=== PATIENT | female | born 1950 | race Caucasian/White ===

== ENCOUNTER 2024-08-17 08:45 | Outpatient (RCR) | payer MEDICARE, BC, SELFPAY | END 2024-12-15 23:59 | disposition home or self-care (01) | PROVIDERS: PCP Physician Assistant Medical; Visit Provider Student in an Organized Health Care Education/Training Program | DX: M79.604 Pain in right leg (principal); Z74.09 Other reduced mobility; M62.81 Muscle weakness (generalized); R26.81 Unsteadiness on feet; Z51.89 Encounter for other specified aftercare | CPT/HCPCS: 97110; 97140; 97161 ==

== ENCOUNTER 2025-01-17 14:36 | Inpatient (IN) | payer MEDICARE, BC, SELFPAY ==
[2025-01-16] VITALS (23 sets, daily range): BP systolic 82–185; BP diastolic 38–113; PULSE 59–109; RESP 12–18; TEMP 35.8–36.9; O2SAT 91–97; BMI 28.0
[2025-01-16] MEDS: OXYCODONE (CR) 10 MG TAB.ER.12H PO (08:48)
[2025-01-16] MEDS: LACTATED RINGERS 1000 ML 1,000 ML 100 ML IV ×2 (08:48→13:23)
[2025-01-16] MEDS: ACETAMINOPHEN 500 MG TABLET 1000 MG PO ×3 (08:48→23:47)
[2025-01-16] MEDS: SODIUM CHLORIDE 0.9 % (FLUSH) 10 ML SYRINGE IVF (08:48)
--- NOTE | 2025-01-16 10:16 | W.PM.H&PU ---
History & Physical Update History & Physical Update H&P Reviewed and patient assessed: No changes noted
--- NOTE | 2025-01-16 10:45 | XR_ITS ---
Patient: BETTY MARTE Facility:?[facility] Patient ID:?[id number] Site Patient ID:?[id number]. Site :?[id number] Study:?XRay-Hip Right 1v-01/16/2025 2:17:59 PM Ordering Physician:Victorino Patel Final Report: Indication: Right total hip arthroplasty Technique: AP lower pelvis and lateral right hip Findings: There is a right MATTHEW. Components appear well seated. No fracture or dislocation. Dictated by Hunter Cutler MD @ 01/18/2025 10:25:11 AM (Electronic Signature)
[2025-01-16] MEDS: fentaNYL 100 MCG/2 ML inj IVP (11:16)
[2025-01-16] MEDS: MIDAZOLAM HCL 1 MG/ML inj IVP (11:16)
--- NOTE | 2025-01-16 11:23 | SUR.PREOP ---
TIME?OUT:?1116 PT/RN/MDA?VERIFICATION?OF?SURGICAL?SITE,?PROCEDURE,?AND?CONSENT OBTAINED?PRIOR?TO?INVASIVE?PROCEDURE.
--- NOTE | 2025-01-16 12:11 | CRLHL7_ITS ---
For Patients: As a result of the Cures Act, medical imaging exams and procedure reports are released immediately into your electronic medical record. You may view this report before your referring provider. If you have questions, please contact your health care provider. Indication: Right hip arthroplasty. Technique: Orthopedic pelvis and cross-table lateral view of the right hip. Comparison: None. Findings: A non cemented right total hip arthroplasty has been placed. Alignment appears anatomic. There are postoperative changes within the right hip soft tissues. No other retained radiopaque metallic surgical foreign body is identified. The left hip joint space is preserved. Impression: Status post right hip arthroplasty. Dictated by Alan Graham MD @ 01/17/2025 2:22:40 PM (Electronically Signed)
[2025-01-16] MEDS: CEFAZOLIN 2 GM in 0.9 % SODIUM CHLORIDE Mini-bag 100 ML IVPB ×2 (12:12→17:40)
[2025-01-16] MEDS: TRANEXAMIC ACID 100 MG/ML INJ 1000 MG IV (12:12)
--- NOTE | 2025-01-16 12:40 | P.ANES_ITS ---
Anesthesia Charges Start Date/Time Anesthesia Start Date: 01/16/25 Anesthesia Start Time: 11:46 Stop Date/Time Anesthesia Stop Date: 01/16/25 Anesthesia Stop Time: 14:06 Summary Extremes of Age - Over 70 or under 1: MDA Coding CPT Codes CPT Codes: ANESTH HIP ARTHROPLASTY - 14367 ([id number]) P1 - NORMAL HEALTHY PATIENT, QK - MINE MOTOR OPERATOR 2-4 CNCRNT ANES PROC, QX - IT PROGRAM ENGAGEMENT DIRECTOR SVC W/ MD MED DIRECTION Additional Codes: Summary - Extremes of Age - Over 70 or under 1: MDA ([id number])
--- NOTE | 2025-01-16 12:40 | W.PM.NB ---
Nerve Block Nerve Block Time Seen by Provider: 11:20 Date Seen: 01/16/25 Type of block requested by surgeon for post-operative analgesia: CHRISTI/LFCN Side: right Time out performed: Yes Verification of patient name: Yes Verification of date of : Yes Site marking: site marked Name of person performing procedure: Francois Continuous monitoring Was continuous monitoring of O2 sat, B/P, sports management internship, recorded every 15 minutes?: Yes Procedure Checklist: sterile prep, needles and gloves Ultrasound guided. Images saved: Yes Medications given in 5ml increments after negative aspiration: Ropivicaine %: 0.5 mL: 30 Needle gauge: 20 Precedex (mcg): 25 Patient tolerated procedure well: Yes Additional comments: Needle noted below psoas tendon needle noted adjacent to LFCN Block Charges Block Charge (with Pro Fee): Other Periph Nerve Block Use of Ultrasound Machine for Block: Yes- US Guidance/pain block
--- NOTE | 2025-01-16 12:40 | W.ANESCHARGE ---
Anesthesia Charges Start Date/Time Anesthesia Start Date: 01/16/25 Anesthesia Start Time: 11:46 Stop Date/Time Anesthesia Stop Date: 01/16/25 Anesthesia Stop Time: 14:06 Summary Extremes of Age - Over 70 or under 1: MDA Coding CPT Codes CPT Codes: ANESTH HIP ARTHROPLASTY - 22974 ([id number]) P1 - NORMAL HEALTHY PATIENT, QK - ADMINISTRATIVE ASST 2-4 CNCRNT ANES PROC, QX - SECOND TIME WORKER SVC W/ MD MED DIRECTION Additional Codes: Summary - Extremes of Age - Over 70 or under 1: MDA ([id number])
[2025-01-16] MEDS: LACTATED RINGERS 1000 ML 1,000 ML 500 ML IV (13:23)
--- NOTE | 2025-01-16 13:32 | P.ORPRC_ITS ---
Procedure Note Date of procedure: 01/16/25 Procedure: PREOPERATIVE DIAGNOSIS: 1. Right hip osteoarthritis, severe, primary POSTOPERATIVE DIAGNOSIS: 1. Right hip osteoarthritis, severe, primary PROCEDURE: 1. Right total hip arthroplasty-anterior approach 2. 63282 - intraoperative fluoroscopy up to 1 hour. SURGEON: Jorge Heller MD. SKULL CHOPPER: Miller Thapa PA-C; DIANE Camar[place] - Of note, a skilled physical therapist assistant was critical for this case to aid in patient positioning, tissue retraction, limb manipulation/positioning, and closure. ANESTHESIA: Spinal anesthetic EBL: 250 mL IMPLANTS: DePuy J[employer]J uncemented total hip [employer] cup size 50, hole eliminator, +4 neutral liner Actis stem, standard offset, size 6 +5 mm ceramic 32mm head COMPLICATIONS: None evident INDICATIONS: The patient is a pleasant 74-year-old female who has experienced severe right hip pain and difficulty bearing weight. Workup included x-rays which revealed severe osteoarthrosis in the hip. Given the deformity, the dysfunction, and the pain, as well as the failure of nonoperative management, recommendation was made for surgery. FINDINGS: Full-thickness chondral loss diffusely throughout the femoral head. Also acetabulum. Osteophytes around the perimeter of the acetabulum and femoral head/neck junction. Moderate effusion upon entering the joint. DESCRIPTION OF PROCEDURE: Following a thorough discussion of risks, benefits, and alternatives consent was obtained and the right hip was marked. The patient was brought to the operating room and placed supine on the operating table. Induction of anesthesia was undertaken. 2 g IV Ancef and 1 g tranexamic acid was administered within 1 hr of incision preoperatively. Proper time-out was performed identifying proper patient, site, procedure. The operative extremity was prepped and draped in the appropriate sterile fashion using ChloraPrep after the patient was positioned on the Carson table with head in neutral alignment and all bony prominences well padded. C-arm fluoroscopic imaging was utilized to confirm proper pelvis rotation and position, and to get true AP films of both the contralateral left, and the affected right hip. This is for comparison. A longitudinal incision was made starting approximately 1 cm distal to the ASIS, and 3-4 cm lateral. The incision was extended distally aiming toward the lateral border the patella. Sharp incision through skin and bovie cautery through the subcutaneous tissue allowed identification of the TFL fascia. This was sharply divided, and the fascia bluntly released from the muscle fibers as we dissected medial. Upon coming to the medial border, we were able to retract the TFL laterally, and penetrated the deeper fascia and identify the crossing circumflex vessels. These were ligated/cauterized. The rectus was elevated from the capsule, and retractors placed laterally and medially along the femoral neck to help with visualization of the capsule. We then performed an inverted T capsulotomy. The capsule was tagged for later repair. Retractors were placed inside the capsule. The femoral neck was visualized after releasing medially down to the lesser trochanter, along the saddle laterally, and up onto the acetabulum. The femoral neck cut was made in line with our preoperative templating. The head was removed in a single piece, and sized. We turned our attention to acetabular preparation. Initially, the labrum was resected from around the perimeter, the pulvinar was excised, allowing us to visualize the false wall. We started the reaming with a 43 mm reamer. This was medialized down to the true wall. We then enlarged our reamers sequentially up to one size less than the selected cup size. We trialed at the same size and found it to have an excellent fit. The selected cup was then opened, inserted, and impacted in line with the goal of 40? of abduction, and 20-25? of anteversion. This was confirmed on C-arm fluoroscopic imaging to be in the appropriate/goal position. Once the cup was placed we placed a hole eliminator and a liner consistent with preop planning. Attention was turned to the femoral preparation. The limb was extended, externally rotated, and adducted. The posteromedial capsule was released, as retractors were placed allowing excellent access to the proximal femur. Initially a box office attendant was followed by canal finder followed by various broaches. We broached sequentially up to the size noted above, found it to have excellent rotational control, and trialing various heads and necks, revealed that appropriate neck offset, and the above noted head size provided the greatest stability, and spiritism of length, and offset. C-arm fluoroscopic imaging confirmed position of the stem, as well as leg lengths, which were compared with the pre procedure all fluoroscopic images. Trial implants were removed, the real femoral stem inserted, as was the appropriate head. After reducing, the leg was placed through range of motion and stability was confirmed anterior, posterior, and lateral. A 3 min Betadine soak was then performed, and thorough irrigation with normal saline followed. Closure of the capsule was performed with #1 PDS. Bleeding was confirmed to be controlled at this stage, and the TFL fascia was closed with #0 strata fix. Subcutaneous, and subcuticular closure was performed with 2-0 Vicryl and 4-0 Monocryl, respectively. Dressings were applied, and the patient was awoken from anesthesia and transferred the PACU in stable condition. A skilled physical therapist assistant was critical for this case to aid in patient positioning, tissue retraction, acetabular and proximal femoral exposure, limb manipulation/positioning, dislocation/relocation, patient safety, and closure. PLAN: 1. Weight bear as tolerated operative extremity. 2. 23 hr perioperative antibiotics. 3. Ice. 4. PT/OT consults for ambulation assistance/mobility education. 5. Social work consult for discharge planning. 6. DVT prophylaxis with at SCDs and Xarelto x5 days followed by aspirin for a total of 1 month, if her allergy allows.
--- NOTE | 2025-01-16 14:07 | P.ANES_ITS ---
Anesthesia Charges Start Date/Time Anesthesia Start Date: 01/16/25 Anesthesia Start Time: 11:46 Stop Date/Time Anesthesia Stop Date: 01/16/25 Anesthesia Stop Time: 14:06 Summary Extremes of Age - Over 70 or under 1: QUALITY SYSTEMS TECHNICIAN Coding CPT Codes CPT Codes: ANESTH HIP ARTHROPLASTY - 05008 ([id number]) P1 - NORMAL HEALTHY PATIENT, QX - QUALITY SYSTEMS TECHNICIAN RAMO W/ MED DIRECTION, QK - CAMPUS INTERVIEWS INTERN 2-4 CNCRNT ANES PROC Additional Codes: Summary - Extremes of Age - Over 70 or under 1: QUALITY SYSTEMS TECHNICIAN ([id number])
--- NOTE | 2025-01-16 14:07 | W.ANESCHARGE ---
Anesthesia Charges Start Date/Time Anesthesia Start Date: 01/16/25 Anesthesia Start Time: 11:46 Stop Date/Time Anesthesia Stop Date: 01/16/25 Anesthesia Stop Time: 14:06 Summary Extremes of Age - Over 70 or under 1: PSYCHOMETRIC EXAMINER Coding CPT Codes CPT Codes: ANESTH HIP ARTHROPLASTY - 23692 ([id number]) P1 - NORMAL HEALTHY PATIENT, QX - PSYCHOMETRIC EXAMINER RAMO W/ MED DIRECTION, QK - TANK ERECTOR 2-4 CNCRNT ANES PROC Additional Codes: Summary - Extremes of Age - Over 70 or under 1: PSYCHOMETRIC EXAMINER ([id number])
[2025-01-16] MEDS: PHENYLEPHRINE 100 MCG/ML SYRINGE IVP (14:11)
[2025-01-16] MEDS: HYDROmorphone 0.5 mg/0.5 ml inj IVP ×2 (15:06→23:05)
[2025-01-16] MEDS: LACTATED RINGERS 1000 ML 1,000 ML 75 ML IV (16:38)
[2025-01-16] MEDS: OXYCODONE 5 MG TABLET PO ×3 (17:39→21:36)
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
[2025-01-16] MEDS: SENNOSIDES 1 TAB TABLET 2 TAB PO (20:24)
--- NOTE | 2025-01-16 22:02 | P.IMCN_ITS ---
Date of Consult Consult date: 01/16/25 Primary Care Provider: Velia Singleton DO Consult Narrative Narrative: Lilliana Fabian is a 74 year old female admitted to the hospital for right total hip arthroplasty. Procedure performed today by Dr. Heller today. No complications. Dr. Heller requested consultation for medical management. Postoperatively she is doing well. She has no postoperative concerns. Pain is well controlled. She reports that preoperatively she was doing well. No significant concerns for perioperative care on her preop exam. 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) ?H46.8 - Other optic neuritis (ICD-10) Breast cancer ?C50.919 - Malignant neoplasm of unspecified site of unspecified female breast (ICD-10) Surgical History (Updated 01/16/25 @ 22:18 by Rogelio Woodward MD) S/P total right hip arthroplasty ?Z96.641 - Presence of right artificial hip joint (ICD-10) History of left mastectomy (2012) ?Z90.12 - Acquired absence of left breast and nipple (ICD-10) Family History (Updated 01/16/25 @ 22:19 by Rogelio Woodward MD) Sister Breast cancer Mother Breast cancer Heart disease Father Diabetes Social History (Updated 01/16/25 @ 22:20 by Rogelio Woodward MD) Narrative: She lives with her , Landry, who is healthcare power of mergers and acquisitions attorney. Code status is DNR. She lives in a home in [place] and can live on 1 level during her recovery from surgery. She does not smoke. She drinks alcohol couple times a month Problems where you live: no known problems Smoking Status: Never smoker Do you use any of these nicotine containing products: None Second hand tobacco smoke exposure: No How often do you have a drink containing alcohol: never AUDIT-C Alcohol total score: 0 Non-prescribed substance use: denies use Caffeine: Yes service: No Meds Home Medications and Allergies Home Medications ?Medication ?Instructions ?Recorded ?Confirmed ?Type amitriptyline 10 mg tablet 10 mg PO QPM 11/10/24 01/16/25 History escitalopram oxalate 20 mg tablet 20 mg PO QAM 11/10/24 01/16/25 History losartan 100 mg tablet 100 mg PO DAILY 11/10/24 01/16/25 History Allergies Allergy/AdvReac Type Severity Reaction Status Date / Time aspirin Allergy Rash Verified 01/16/25 08:39 Exam Narrative: Exam Narrative: She is alert and appears in no distress. Oropharynx is normal. Respirations are clear to auscultation. Cardiovascular: S1, S2, regular rate and rhythm. Abdomen: Bowel sounds active. Abdomen is soft without tenderness or mass. Hip is examined there is some swelling without evidence of infection. Distally she has intact pulses and sensation. No significant edema in her feet and ankles. Const: Vital Signs, click to edit/add: Vital Signs - 24 hr 01/16/25 09:11 01/16/25 11:16 01/16/25 11:20 Temperature 98.3 F 98.3 F Pulse Rate 73 67 67 Respiratory Rate 16 16 16 Blood Pressure 165/89 H 169/90 H 163/88 H Pulse Oximetry 95 97 97 Oxygen Delivery Me thod Room Air Nasal Cannula Nasal Cannula Oxygen Flow Rate 2 2 01/16/25 14:03 01/16/25 14:07 01/16/25 14:10 Temperature 96.5 F L 97.0 F L 97.0 F L Pulse Rate 62 59 L 59 L Respiratory Rate 12 12 12 Blood Pressure 91/54 L 91/51 L 82/56 L Pulse Oximetry 92 92 92 Oxygen Delivery Me thod Room Air Room Air Room Air Oxygen Flow Rate 01/16/25 14:15 01/16/25 14:20 01/16/25 14:25 Temperature 97.8 F Pulse Rate 65 70 72 Respiratory Rate 14 14 14 Blood Pressure 136/75 107/57 L 101/66 Pulse Oximetry 92 92 92 Oxygen Delivery Me thod Room Air Room Air Room Air Oxygen Flow Rate 01/16/25 14:30 01/16/25 14:36 01/16/25 14:45 Temperature 97.6 F Pulse Rate 68 72 70 Respiratory Rate 14 16 14 Blood Pressure 102/53 L 116/74 118/75 Pulse Oximetry 92 95 92 Oxygen Delivery Me thod Room Air Room Air Room Air Oxygen Flow Rate 01/16/25 15:00 01/16/25 15:00 01/16/25 15:15 Temperature 97.2 F L Pulse Rate 70 75 Respiratory Rate 16 16 14 Blood Pressure 112/68 111/75 Pulse Oximetry 94 94 93 Oxygen Delivery Me thod Room Air Room Air Room Air Oxygen Flow Rate 01/16/25 15:30 01/16/25 15:45 01/16/25 16:15 Temperature 97.2 F L 97.9 F Pulse Rate 84 87 86 Respiratory Rate 14 16 16 Blood Pressure 131/68 139/104 H 131/85 Pulse Oximetry 94 92 91 Oxygen Delivery Me thod Room Air Room Air Room Air Oxygen Flow Rate 0 01/16/25 17:00 01/16/25 19:00 01/16/25 20:00 Temperature 97.6 F 98.4 F Pulse Rate 85 92 99 Respiratory Rate 16 16 16 Blood Pressure 125/79 117/85 145/38 H Pulse Oximetry 93 95 93 Oxygen Delivery Me thod Room Air Room Air Room Air Oxygen Flow Rate 0 Documenting provider has reviewed patient's vital signs: yes Assessment and Plan Assessment and plan (1) S/P total right hip arthroplasty: Problem comment: Dr. Heller, 01/16/2025, no complications Status: Acute (2) Osteoarthritis of right hip: Status: Acute Plan Patient is admitted for postoperative management of hip arthroplasty. Routine management with pain management and therapy. Anticipate discharge to home with tomorrow. Monitor for complications of surgery including hypotension. Hold antihypertensives pending return of blood pressure. Total Time Spent Total Time Spent: Total time spent is 40 minutes in review of medical records, evaluation and management, coordination of care and discussing with patient about postoperative recovery
[2025-01-16] MEDS: ONDANSETRON 2 MG/ML inj 4 MG IVP (22:55)
[2025-01-16] MEDS: 0.9 % SODIUM CHLORIDE 500 ML IV (23:47)
[2025-01-16] MEDS: KETOROLAC 15 MG/ML inj IVP (23:47)
[2025-01-17] VITALS (11 sets, daily range): BP systolic 141–187; BP diastolic 72–105; PULSE 95–109; RESP 14–20; TEMP 36.7–38; O2SAT 90–96
[2025-01-17] MEDS: CEFAZOLIN 2 GM in 0.9 % SODIUM CHLORIDE Mini-bag 100 ML IVPB (02:37)
[2025-01-17] MEDS: OXYCODONE 5 MG TABLET PO (03:47)
[2025-01-17] MEDS: ACETAMINOPHEN 500 MG TABLET 1000 MG PO ×3 (05:59→23:20)
--- NOTE | 2025-01-17 06:21 | PC.NURSE ---
End of shift [id number]: Pt AxOx4, pleasant, and cooperative with cares. Pt had gradual increase in blood pressure and heart rate during post op VS. MD Woodward made aware of signs, symptoms, and VS. Pt reported pain to the R hip that was managed with PRN medication, scheduled medication, active ice, and repo. Pt reported headache on and off throughout the night, managed with one time dose of Ketorolac by MD Woodward and scheduled Tylenol. Pt reported nausea that was managed well with aromatherapy patch and Zofran. Pt is having little urine output, marketing underwriter utilized bladder scanning with no significant value found. PRN bolus given. A1 GB W. Pt tolerating reg diet well. Op site remains CDI, active ice applied. CMS intact. Pt uses call light appropriately. Call light in reach, resting in bed.
[2025-01-17 06:24] LABS: Hematocrit 33.5 % (33.0-51.0); Hemoglobin* 10.7 gm/dL (12.0-16.0); Immature Granulocytes Pct Auto 0.3 %; Mean Corpuscular HGB Conc 32 gm/dL (32-36); Mean Corpuscular Hemoglobin 29 pg (26-34); Mean Corpuscular Volume 90 fL (80-100); Monocytes Percent Auto 10.6 % (0.0-11.0); Neutrophils Percent Auto 82.1 % (42.0-72.0); Platelet Count* 267 K/uL (140-440); RDW Coefficient of Variation % 11.7 % (11.5-15.5); Red Blood Count 3.73 m/uL (4.00-5.20); White Blood Count* 15.06 K/uL (4.50-11.00)
[2025-01-17 06:27] LABS: Slide Review Reflex No
[2025-01-17 06:41] LABS: Sodium* 134 mmol/L (135-149)
[2025-01-17 06:42] LABS: Potassium* 4.5 mmol/L (3.6-5.1)
[2025-01-17 06:45] LABS: Blood Urea Nitrogen* 36 mg/dL (7-30); Estimated Glomerular Filt Rate 59 ml/min
[2025-01-17] MEDS: ESCITALOPRAM 10 MG TABLET 20 MG PO (08:15)
[2025-01-17] MEDS: SENNOSIDES 1 TAB TABLET 2 TAB PO ×2 (08:16→21:09)
[2025-01-17] MEDS: RIVAROXABAN 10 MG TABLET PO (08:16)
--- NOTE | 2025-01-17 09:11 | REH.PT ---
Hold PT/OT Eval & Treat until PM per MD Pierce.
[2025-01-17 09:28] LABS: Troponin I* < 0.01 ng/mL (0.01-0.04)
[2025-01-17] MEDS: ONDANSETRON 2 MG/ML inj 4 MG IVP (10:00)
--- NOTE | 2025-01-17 10:02 | PM.ORPN ---
Subjective Subjective Date Seen: 01/17/25 Principal diagnosis: Status postop day 1, right total hip arthroplasty - anterior approach Interval history: Patient reports feeling a little upset to her stomach, warm, sweating, and persistent mild-moderate headache since coming to the hospital on 01/16/2025. Denying any nausea or vomiting. Denies any vision disturbances, double vision, blurry vision etc.. No acute events over night. She has demonstrated slowly elevating blood pressures and slight tachycardia low 100s. Does not feel that her heart is racing, fluttering, or skipping beats. Pain managed with scheduled and PRN medications, ice. DVT prophylaxis: Rivaroxaban, SCDs, walking. Denies fevers, chills, aches, N/V, CP, SOB/NEVAREZ, or lightheadedness. She is having coffee this morning to see if this helps her headache. Having breakfast as well. Ortho Exam Narrative Exam Narrative: -Patient appears comfortable; no apparent acute distress. She is not visibly diaphoretic. Occasionally applies a cool washcloth to her forehead. Aroma therapy patch on her gown -No obvious facial droop, or slurred speech. Patient has conversations coherent and linear -Alert and oriented times 3 -Operative hip/proximal thigh moderately swollen; soft tissues supple; no ecchymosis; no erythematous streaking Warmth appropriate -Surgical dressing clean, dry, intact; no drainage -Bilateral calfs soft; no significant swelling, edema, tenderness, erythema, discoloration, warmth, or palpable cords -2+ DP/PT pulses, intact dermatomes and myotomes distally (5/5 strength) -demonstrates no facial asymmetry. At 1st, there appeared to be a slight left facial droop/more prominent right side smile. A few seconds later, when she smiled naturally, without being cued, she demonstrated a symmetrical smile. No arm drift. Const Vital Signs, click to edit/add: Vital Signs - 24 hr 01/16/25 11:16 01/16/25 11:20 01/16/25 14:03 Temperature 98.3 F 96.5 F L Pulse Rate 67 67 62 Pulse Rate [Pulse Oximeter] Respiratory Rate 16 16 12 Blood Pressure 169/90 H 163/88 H 91/54 L Blood Pressure [Left Arm] Blood Pressure [Right Arm] Pulse Oximetry 97 97 92 Oxygen Delivery Method Nasal Cannula Nasal Cannula Room Air Oxygen Flow Rate 2 2 01/16/25 14:07 01/16/25 14:10 01/16/25 14:15 Temperature 97.0 F L 97.0 F L Pulse Rate 59 L 59 L 65 Pulse Rate [Pulse Oximeter] Respiratory Rate 12 12 14 Blood Pressure 91/51 L 82/56 L 136/75 Blood Pressure [Left Arm] Blood Pressure [Right Arm] Pulse Oximetry 92 92 92 Oxygen Delivery Method Room Air Room Air Room Air Oxygen Flow Rate 01/16/25 14:20 01/16/25 14:25 01/16/25 14:30 Temperature 97.8 F Pulse Rate 70 72 68 Pulse Rate [Pulse Oximeter] Respiratory Rate 14 14 14 Blood Pressure 107/57 L 101/66 102/53 L Blood Pressure [Left Arm] Blood Pressure [Right Arm] Pulse Oximetry 92 92 92 Oxygen Delivery Method Room Air Room Air Room Air Oxygen Flow Rate 01/16/25 14:36 01/16/25 14:45 01/16/25 15:00 Temperature 97.6 F Pulse Rate 72 70 Pulse Rate [Pulse Oximeter] Respiratory Rate 16 14 16 Blood Pressure 116/74 118/75 Blood Pressure [Left Arm] Blood Pressure [Right Arm] Pulse Oximetry 95 92 94 Oxygen Delivery Method Room Air Room Air Room Air Oxygen Flow Rate 01/16/25 15:00 01/16/25 15:15 01/16/25 15:30 Temperature 97.2 F L Pulse Rate 70 75 84 Pulse Rate [Pulse Oximeter] Respiratory Rate 16 14 14 Blood Pressure 112/68 111/75 131/68 Blood Pressure [Left Arm] Blood Pressure [Right Arm] Pulse Oximetry 94 93 94 Oxygen Delivery Method Room Air Room Air Room Air Oxygen Flow Rate 0 01/16/25 15:45 01/16/25 16:15 01/16/25 17:00 Temperature 97.2 F L 97.9 F 97.6 F Pulse Rate 87 86 85 Pulse Rate [Pulse Oximeter] Respiratory Rate 16 16 16 Blood Pressure 139/104 H 131/85 125/79 Blood Pressure [Left Arm] Blood Pressure [Right Arm] Pulse Oximetry 92 91 93 Oxygen Delivery Method Room Air Room Air Room Air Oxygen Flow Rate 01/16/25 19:00 01/16/25 20:00 01/16/25 21:00 Temperature 98.4 F 98.2 F Pulse Rate 92 99 98 Pulse Rate [Pulse Oximeter] Respiratory Rate 16 16 16 Blood Pressure 117/85 145/38 H 160/100 H Blood Pressure [Left Arm] Blood Pressure [Right Arm] Pulse Oximetry 95 93 94 Oxygen Delivery Method Room Air Room Air Room Air Oxygen Flow Rate 0 0 01/16/25 23:00 01/16/25 23:00 01/16/25 23:30 Temperature 98.1 F 98.2 F Pulse Rate Pulse Rate [Pulse Oximeter] 109 H 106 H Respiratory Rate 18 18 18 Blood Pressure Blood Pressure [Left Arm] 185/110 H 151/113 H Blood Pressure [Right Arm] 172/113 H Pulse Oximetry 94 94 92 Oxygen Delivery Method Room Air Room Air Room Air Oxygen Flow Rate 0 0 01/17/25 03:00 01/17/25 08:34 01/17/25 08:35 Temperature 98.1 F 98.2 F Pulse Rate Pulse Rate [Pulse Oximeter] 105 H 109 H Respiratory Rate 16 20 20 Blood Pressure Blood Pressure [Left Arm] 182/90 H Blood Pressure [Right Arm] 141/96 H Pulse Oximetry 90 94 94 Oxygen Delivery Method Room Air Room Air Room Air Oxygen Flow Rate 0 01/17/25 09:07 Temperature Pulse Rate Pulse Rate [Pulse Oximeter] 109 H Respiratory Rate Blood Pressure Blood Pressure [Left Arm] Blood Pressure [Right Arm] Pulse Oximetry Oxygen Delivery Method Oxygen Flow Rate Assessment and Plan Assessment and plan (1) S/P total right hip arthroplasty: Problem details: Dr. Heller, 01/16/2025, no complications Status: Acute (2) Osteoarthritis of right hip: Status: Acute Plan - Complete 23 hour perioperative antibiotics. - PT/OT consult for education and assistance. - Social work consult for discharge planning - Prescribed analgesics as needed - DVT prophylaxis: Rivaroxaban 5 days, followed by 81 mg aspirin by mouth twice daily, walking, and SCDs - spoke with hospitalist regarding patient's signs and symptoms of increased blood pressures, slight increased heart rate, headache, mildly diaphoretic without objective fevers, and feeling slightly sick to stomach. They will do a further workup and watch how she does this morning and into the afternoon, then determine discharge at that point. - Anticipation is for discharge to home with family/friends today 01/17/2025, or 01/18/2025 if the patient remains medically stable, pain is controlled, and they are safe with mobilization.
[2025-01-17 11:02] LABS: PCR FLU A Negative PCR FLU A (Negative); PCR FLU B Negative PCR FLU B (Negative); PCR RSV Negative PCR RSV (Negative); SARS PCR* Negative SARS-CoV-2 (Negative)
[2025-01-17] MEDS: HYDROmorphone 0.5 mg/0.5 ml inj IVP (12:12)
[2025-01-17 12:18] LABS: Hemoglobin* 9.9 gm/dL (12.0-16.0)
[2025-01-17] MEDS: LOSARTAN POTASSIUM 50 MG TABLET 100 MG PO (12:42)
[2025-01-17 12:54] LABS: Troponin I* < 0.01 ng/mL (0.01-0.04)
[2025-01-17 14:31] LABS: Hemoglobin* 10.2 gm/dL (12.0-16.0)
[2025-01-17] MEDS: PANTOPRAZOLE SODIUM 40 MG INJ 80 MG IVP (14:39)
[2025-01-17] MEDS: PANTOPRAZOLE SODIUM 80 MG in 0.9 % SODIUM CHLORIDE 100 ml 100 ML 10 MG IVPB ×2 (14:39→23:20)
--- NOTE | 2025-01-17 14:58 | REH.OT ---
Pt. not medically appropriate for OT evaluation today. She will be staying overnight w/ scheduled EGD tomorrow in the PM. OT will evaluate in the AM tomorrow.
--- NOTE | 2025-01-17 16:24 | PC.NURSE ---
End of shift [id number]- Pt alert, oriented, cooperative. Up with standby assistance and walker/gait belt. Reported pain in surgical hip as 4-5/10, reported this was a tolerable level and refused pain medication. Pedal pulse present, dressing CDI. Pt reported persistent headache and nausea. Given medication per MAR with no improvement. Pt had 3 instances of black emesis, MD notified. Orders followed per EMAR. Pt tolerating clear liquid diet and RA. Appears to be resting comfortably at end of shift with call light within reach.
--- NOTE | 2025-01-17 16:47 | PM.IMPN1 ---
Assessment and Plan Assessment and plan (1) Upper GI bleed: Problem comment: Coffee-ground emesis today. Had only 1 dose of Xarelto this morning for VTE prophylaxis. I note that her BUN from early this morning is mildly elevated. I ordered a gastric all 10 this is positive. Will also order H pylori, clear liquid diet, no red dyes. I have spoken with the provider in EGD today and since she had Xarelto this morning, they are unable to do the EGD today. I will make her NPO after midnight and I have ordered the EGD for tomorrow morning. The meantime I have given her a in IV Protonix bolus and started a Protonix drip. Check serial hemoglobin as well, so far her hemoglobin has been stable. Status: Acute (2) S/P total right hip arthroplasty: Problem comment: Dr. Heller, 01/16/2025, no complications Status: Acute (3) Osteoarthritis of right hip: Status: Chronic (4) Hypertension: Problem comment: Due to elevated blood pressures, restart losartan. Monitor blood pressure closely. If blood pressure starts to trend downward in the setting of GI bleeding, hold losartan Status: Acute Plan Additionally I have obtained an EKG as above, triple swab for COVID/influenza/RSV which is negative, and troponin which is negative x2. I think her symptoms are likely related to GI bleeding, treat as above. Subjective Time Seen by Provider: 09:00 Date Seen: 01/17/25 Interval history: Lilliana continued to have a mild frontal headache this morning. Her BP was much better. Nurse noted her to be diaphoretic, which I also noted upon seeing her. Lilliana denied CP, SOB, abdominal pain. She did complain about a sore throat that was new since surgery. She denied any other upper respiratory symptoms. About an hour after I saw her, she had coffee-ground emesis. Exam Narrative: Exam Narrative: General: No acute distress. Awake, alert, oriented x3. Diaphoretic. No jaundice. Oropharynx: Clear. Mucous membranes moist. Cardiovascular: Regular rate and rhythm. No murmurs, gallops, or rubs. Respiratory: Clear to auscultation bilaterally. No wheezes or crackles. Abdomen: Bowel sounds present. Soft, nondistended, nontender. Extremities: Right hip bandages are clean, dry, and intact. No lower extremity edema. Const: Vital Signs, click to edit/add: Vital Signs - 24 hr 01/16/25 17:00 01/16/25 19:00 01/16/25 20:00 Temperature 97.6 F 98.4 F Pulse Rate 85 92 99 Pulse Rate [Pulse Oximeter] Respiratory Rate 16 16 16 Blood Pressure 125/79 117/85 145/38 H Blood Pressure [Le ft Arm] Blood Pressure [Ri ght Arm] Pulse Oximetry 93 95 93 Oxygen Delivery Me thod Room Air Room Air Room Air Oxygen Flow Rate 0 01/16/25 21:00 01/16/25 23:00 01/16/25 23:00 Temperature 98.2 F 98.1 F Pulse Rate 98 Pulse Rate [Pulse Oximeter] 109 H Respiratory Rate 16 18 18 Blood Pressure 160/100 H Blood Pressure [Le ft Arm] 185/110 H Blood Pressure [Ri ght Arm] 172/113 H Pulse Oximetry 94 94 94 Oxygen Delivery Me thod Room Air Room Air Room Air Oxygen Flow Rate 0 0 01/16/25 23:30 01/17/25 03:00 01/17/25 08:34 Temperature 98.2 F 98.1 F Pulse Rate Pulse Rate [Pulse Oximeter] 106 H 105 H Respiratory Rate 18 16 20 Blood Pressure Blood Pressure [Le ft Arm] 151/113 H 182/90 H Blood Pressure [Ri ght Arm] Pulse Oximetry 92 90 94 Oxygen Delivery Me thod Room Air Room Air Room Air Oxygen Flow Rate 0 0 01/17/25 08:35 01/17/25 09:07 01/17/25 11:00 Temperature 98.2 F Pulse Rate Pulse Rate [Pulse Oximeter] 109 H 109 H 103 H Respiratory Rate 20 Blood Pressure Blood Pressure [Le ft Arm] Blood Pressure [Ri ght Arm] 141/96 H Pulse Oximetry 94 Oxygen Delivery Me thod Room Air Oxygen Flow Rate 01/17/25 11:00 01/17/25 12:00 01/17/25 13:00 Temperature 98.5 F Pulse Rate Pulse Rate [Pulse Oximeter] 103 H 103 H 103 H Respiratory Rate 20 Blood Pressure Blood Pressure [Le ft Arm] Blood Pressure [Ri ght Arm] 187/91 H Pulse Oximetry 96 Oxygen Delivery Me thod Room Air Oxygen Flow Rate 01/17/25 15:00 01/17/25 15:00 Temperature 98.4 F Pulse Rate Pulse Rate [Pulse Oximeter] 95 Respiratory Rate 20 20 Blood Pressure Blood Pressure [Le ft Arm] Blood Pressure [Ri ght Arm] 152/105 H Pulse Oximetry 95 95 Oxygen Delivery Me thod Room Air Room Air Oxygen Flow Rate 0 0 Labs Labs: Laboratory Results - last 24 hr 01/17/25 01/17/25 01/17/25 05:49 09:02 10:21 WBC 15.06 H RBC 3.73 L Hgb 10.7 L Hct 33.5 MCV 90 MCH 29 MCHC 32 RDW Coeff of Iva 11.7 Plt Count 267 Neut % (Auto) 82.1 H Lymph % (Auto) 7.0 L [place] % (Auto) 10.6 Eos % (Auto) 0.0 Baso % (Auto) 0.0 Neut # (Auto) 12.40 H Lymph # (Auto) 1.10 [place] # (Auto) 1.60 H Eos # (Auto) 0.00 Baso # (Auto) 0.00 Abs Immat Gran (auto) 0.00 Imm/Tot Granulo (auto) 0.3 Sodium 134 L Potassium 4.5 BUN 36 H Creatinine 1.0 Estimated Creat Clear 45.50 Estimated GFR 59 Troponin I < 0.01 SARS-CoV-2 (PCR) Negative SARS-CoV-2 Influenza Type A (PCR) Negative PCR FLU A Influenza Type B (PCR) Negative PCR FLU B RSV (PCR) Negative PCR RSV Lab Acknowledgement Test Added 01/17/25 01/17/25 12:09 14:20 WBC RBC Hgb 9.9 L 10.2 L Hct MCV MCH MCHC RDW Coeff of Iva Plt Count Neut % (Auto) Lymph % (Auto) [place] % (Auto) Eos % (Auto) Baso % (Auto) Neut # (Auto) Lymph # (Auto) [place] # (Auto) Eos # (Auto) Baso # (Auto) Abs Immat Gran (auto) Imm/Tot Granulo (auto) Sodium Potassium BUN Creatinine Estimated Creat Clear Estimated GFR Troponin I < 0.01 SARS-CoV-2 (PCR) Influenza Type A (PCR) Influenza Type B (PCR) RSV (PCR) Lab Acknowledgement 01/17/2025 EKG: Sinus tachycardia, 103 beats per minute. Otherwise normal EKG.
--- NOTE | 2025-01-17 16:50 | PC.SOCIAL ---
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 Pt was supposed to discharge today after her surgery yesterday, but was having some nausea, vomiting and a headache and will be staying in the hospital again tonight. Pt states that she still feels good about her plan to return home with her spouse at discharge and shared that she has a neighbor who is in the medical field and would be able to assist her if she had an emergency, as well. Social work to follow-up as needed.
[2025-01-17] MEDS: LACTATED RINGERS 1000 ML 1,000 ML 75 ML IV (16:54)
[2025-01-17] MEDS: AMITRIPTYLINE HCL 10 MG TABLET PO (17:54)
[2025-01-17 21:45] LABS: Lactate* 2.1 mmol/L (0.5-1.9)
[2025-01-17 21:48] LABS: Basophils Percent Auto 0.1 % (0.0-3.0); Hematocrit 26.1 % (33.0-51.0); Hemoglobin* 8.6 gm/dL (12.0-16.0); Immature Granulocytes Pct Auto 0.2 %; Lymphocytes Percent Auto 10.3 % (20-44); Mean Corpuscular HGB Conc 33 gm/dL (32-36); Mean Corpuscular Hemoglobin 29 pg (26-34); Mean Corpuscular Volume 89 fL (80-100); Monocytes Percent Auto 8.9 % (0.0-11.0); Neutrophils Percent Auto 80.5 % (42.0-72.0); Platelet Count* 208 K/uL (140-440); RDW Coefficient of Variation % 11.8 % (11.5-15.5); Red Blood Count 2.93 m/uL (4.00-5.20)
[2025-01-17 21:54] LABS: Slide Review Reflex No
[2025-01-17 21:58] LABS: Appearance Urine Clear (Clear); Bilirubin Urine Negative (Negative); Blood Urine Negative (Negative); Color Urine Yellow (Yellow); Glucose Urine Negative (Negative); Ketones Urine Negative (Negative); Leukocyte Esterase Urine Negative (Negative); Nitrite Urine Negative (Negative); Protein Urine Negative (Negative); Specific Gravity Urine 1.015 (1.000-1.030); Urobilinogen Urine 0.2 (0.2-1.0)
[2025-01-17 22:22] LABS: Albumin* 3.4 g/dL (3.3-5.0)
[2025-01-17 22:25] LABS: Alanine Aminotransferase* 27 U/L (4-35); Alkaline Phosphatase* 50 U/L (40-150); Aspartate Amino Transferase* 78 U/L (12-35); Bilirubin Direct* 0.2 mg/dL (0.0-0.5); Bilirubin Total* 0.4 mg/dL (0.1-1.5); Total Protein* 5.7 g/dL (6.0-8.3)
[2025-01-17 22:28] LABS: C Reactive Protein* 6.5 mg/dL (0.5-1.0)
[2025-01-17 22:42] LABS: Procalcitonin* 0.16 ng/mL (<0.50)
[2025-01-18] VITALS (16 sets, daily range): BP systolic 122–186; BP diastolic 53–90; PULSE 88–102; RESP 16–18; TEMP 36.7–37.4; O2SAT 90–99
[2025-01-18] MEDS: LACTATED RINGERS 1000 ML 1,000 ML 75 ML IV (05:30)
[2025-01-18] MEDS: ACETAMINOPHEN 500 MG TABLET 1000 MG PO ×4 (05:30→23:54)
[2025-01-18 06:40] LABS: Basophils Absolute Auto 0.02 K/uL (0.00-0.30); Basophils Percent Auto 0.2 % (0.0-3.0); Eosinophils Absolute Auto 0.04 K/uL (0.00-0.50); Eosinophils Percent Auto 0.4 % (0.0-7.0); Hematocrit 23.1 % (33.0-51.0); Immature Granulocytes Abs Auto 0.02 K/uL (0.00-0.30); Immature Granulocytes Pct Auto 0.2 %; Lymphocytes Percent Auto 14.4 % (20-44); Mean Corpuscular HGB Conc 33 gm/dL (32-36); Mean Corpuscular Hemoglobin 29 pg (26-34); Mean Corpuscular Volume 89 fL (80-100); Monocytes Percent Auto 8.5 % (0.0-11.0); Neutrophils Percent Auto 76.3 % (42.0-72.0); Platelet Count* 181 K/uL (140-440); RDW Coefficient of Variation % 11.9 % (11.5-15.5); Red Blood Count 2.59 m/uL (4.00-5.20); White Blood Count* 9.95 K/uL (4.50-11.00)
[2025-01-18 06:45] LABS: Slide Review Reflex No
[2025-01-18 06:46] LABS: Hemoglobin* 7.6 gm/dL (12.0-16.0)
--- NOTE | 2025-01-18 06:53 | PC.NURSE ---
End of shift report: VS WNL. At the beginning of shift pt had a fever, MD Woodward notified. UA done. Rates pain from a 4-2 and declined PRN pain meds. States nausea is intermittent. No vomiting this shift. Pt did have oliguria overnight. NPO since 0000. Hip dressing is C/D/I. CMS intact. Ambulates 1 assist, GB, W. Pt refused ice pack overnight. Call light within reach.?
--- NOTE | 2025-01-18 07:57 | P.ANES_ITS ---
Anesthesia Charges Start Date/Time Anesthesia Start Date: 01/18/25 Anesthesia Start Time: 07:55 Stop Date/Time Anesthesia Stop Date: 01/16/25 Anesthesia Stop Time: 08:15 Summary Emergency: PACK MULE WORKER Extremes of Age - Over 70 or under 1: MDA Coding CPT Codes CPT Codes: ANES UPR GI NDSC PX NOS - 78859 ([id number]) P2 - PATIENT W/MILD SYST DISEASE, QK - CHILLING HOOD OPERATOR 2-4 CNCRNT ANES PROC, QX - PACK MULE WORKER SVC W/ MD MED DIRECTION Additional Codes: Summary - Extremes of Age - Over 70 or under 1: MDA ([id number]) Summary - Emergency: PACK MULE WORKER ([id number])
--- NOTE | 2025-01-18 07:57 | W.ANESCHARGE ---
Anesthesia Charges Start Date/Time Anesthesia Start Date: 01/18/25 Anesthesia Start Time: 07:55 Stop Date/Time Anesthesia Stop Date: 01/16/25 Anesthesia Stop Time: 08:15 Summary Emergency: OUTSIDE B2B SALES Extremes of Age - Over 70 or under 1: MDA Coding CPT Codes CPT Codes: ANES UPR GI NDSC PX NOS - 34941 ([id number]) P2 - PATIENT W/MILD SYST DISEASE, QK - SYNTHETIC PLASTERER 2-4 CNCRNT ANES PROC, QX - OUTSIDE B2B SALES SVC W/ MD MED DIRECTION Additional Codes: Summary - Extremes of Age - Over 70 or under 1: MDA ([id number]) Summary - Emergency: OUTSIDE B2B SALES ([id number])
--- NOTE | 2025-01-18 08:17 | P.ANES_ITS ---
Anesthesia Charges Start Date/Time Anesthesia Start Date: 01/18/25 Anesthesia Start Time: 07:55 Stop Date/Time Anesthesia Stop Date: 01/18/25 Anesthesia Stop Time: 08:15 Summary Emergency: WIRE BASKET MAKER Coding CPT Codes CPT Codes: ANES UPR GI NDSC PX NOS - 87985 ([id number]) P2 - PATIENT W/MILD SYST DISEASE, QX - WIRE BASKET MAKER SVC W/ MD MED DIRECTION, QK - MACHINE BINDING FOLDER 2-4 CNCRNT ANES PROC Additional Codes: Summary - Emergency: WIRE BASKET MAKER ([id number])
--- NOTE | 2025-01-18 08:17 | W.ANESCHARGE ---
Anesthesia Charges Start Date/Time Anesthesia Start Date: 01/18/25 Anesthesia Start Time: 07:55 Stop Date/Time Anesthesia Stop Date: 01/18/25 Anesthesia Stop Time: 08:15 Summary Emergency: COMPUTED TOMOGRAPHY TECHNOLOGIST Coding CPT Codes CPT Codes: ANES UPR GI NDSC PX NOS - 10697 ([id number]) P2 - PATIENT W/MILD SYST DISEASE, QX - COMPUTED TOMOGRAPHY TECHNOLOGIST SVC W/ MD MED DIRECTION, QK - PHOTOGRAPHER MODEL 2-4 CNCRNT ANES PROC Additional Codes: Summary - Emergency: COMPUTED TOMOGRAPHY TECHNOLOGIST ([id number])
[2025-01-18] MEDS: ESCITALOPRAM 10 MG TABLET 20 MG PO (09:06)
[2025-01-18] MEDS: LOSARTAN POTASSIUM 50 MG TABLET 100 MG PO (09:07)
[2025-01-18] MEDS: SENNOSIDES 1 TAB TABLET 2 TAB PO ×2 (09:07→20:14)
[2025-01-18] MEDS: OXYCODONE 5 MG TABLET PO ×2 (09:07→17:21)
[2025-01-18] MEDS: OMEPRAZOLE 20 MG CAPSULE DR PO ×2 (11:26→20:15)
--- NOTE | 2025-01-18 12:39 | PM.ORPN ---
Subjective Subjective Date Seen: 01/18/25 Principal diagnosis: Status postop day 2, right total hip arthroplasty - anterior approach Interval history: Patient reports doing better today. She is feeling better, and feels that she can eat now. This morning, she had upper endoscopy with findings of erosive esophagitis. She had a few episodes of hematemesis on 01/17/2025 afternoon. Received 1 dose of Xarelto morning of 01/17/2025. No oral DVT prophylaxis since then. Pain managed with scheduled and PRN medications, ice. DVT prophylaxis: SCDs, frequent walking. Denies fevers, chills, aches, N/V, CP, SOB/NEVAREZ, or lightheadedness. Denies any further headaches; not feeling hot or diaphragm today. Ortho Exam Narrative Exam Narrative: -Patient appears comfortable in bed, lying supine; no apparent acute distress -Alert and oriented times 3 -Normal skin complexion. Not diaphoretic. Not pale appearing -Operative hip swollen; soft tissues supple; no obvious erythema. No significant ecchymosis. No obvious hematoma. Warmth appropriate -Surgical dressing clean, dry, intact; no obvious drainage, no erythematous streaking peripheral to the bandage -Bilateral calves soft and supple; no significant swelling, edema, tenderness, erythema, discoloration, warmth, or palpable cords -2+ DP/PT pulses, intact dermatomes and myotomes distally (5/5 strength). No numbness about the lateral femoral cutaneous nerve distribution. Const Vital Signs, click to edit/add: Vital Signs - 24 hr 01/17/25 13:00 01/17/25 15:00 01/17/25 15:00 Temperature 98.4 F Pulse Rate Pulse Rate [Pulse Oximeter] 103 H 95 Respiratory Rate 20 20 Blood Pressure Blood Pressure [Left Arm] Blood Pressure [Right Arm] 152/105 H Blood Pressure [orthostatic sitting Left Arm] Blood Pressure [orthostatic standing Left Arm] Pulse Oximetry 95 95 Oxygen Delivery Method Room Air Room Air Oxygen Flow Rate 0 0 01/17/25 15:00 01/17/25 19:00 01/17/25 19:00 Temperature 100.4 F H Pulse Rate Pulse Rate [Pulse Oximeter] 95 105 H 105 H Respiratory Rate 14 Blood Pressure Blood Pressure [Left Arm] Blood Pressure [Right Arm] 146/100 H Blood Pressure [orthostatic sitting Left Arm] Blood Pressure [orthostatic standing Left Arm] Pulse Oximetry 92 Oxygen Delivery Method Room Air Oxygen Flow Rate 01/17/25 19:45 01/17/25 23:00 01/17/25 23:00 Temperature 99.4 F 99.4 F Pulse Rate Pulse Rate [Pulse Oximeter] 102 H Respiratory Rate 14 14 Blood Pressure Blood Pressure [Left Arm] 168/72 H Blood Pressure [Right Arm] Blood Pressure [orthostatic sitting Left Arm] Blood Pressure [orthostatic standing Left Arm] Pulse Oximetry 95 95 Oxygen Delivery Method Room Air Room Air Oxygen Flow Rate 01/17/25 23:00 01/17/25 23:00 01/18/25 03:24 Temperature 98.8 F Pulse Rate Pulse Rate [Pulse Oximeter] 102 H 102 H 102 H Respiratory Rate 14 18 Blood Pressure Blood Pressure [Left Arm] Blood Pressure [Right Arm] 150/76 H Blood Pressure [orthostatic sitting Left Arm] Blood Pressure [orthostatic standing Left Arm] Pulse Oximetry 99 Oxygen Delivery Method Room Air Oxygen Flow Rate 01/18/25 03:25 01/18/25 09:00 01/18/25 09:00 Temperature 98.6 F Pulse Rate Pulse Rate [Pulse Oximeter] 102 H 88 Respiratory Rate 16 Blood Pressure Blood Pressure [Left Arm] Blood Pressure [Right Arm] 186/90 H Blood Pressure [orthostatic sitting Left Arm] Blood Pressure [orthostatic standing Left Arm] Pulse Oximetry 98 98 Oxygen Delivery Method Room Air Room Air Oxygen Flow Rate 01/18/25 09:10 01/18/25 11:00 01/18/25 11:00 Temperature 99.4 F Pulse Rate Pulse Rate [Pulse Oximeter] 97 Respiratory Rate 18 Blood Pressure Blood Pressure [Left Arm] 149/69 H Blood Pressure [Right Arm] 166/84 H Blood Pressure [orthostatic sitting Left Arm] 149/69 H Blood Pressure [orthostatic standing Left Arm] 122/63 Pulse Oximetry 95 Oxygen Delivery Method Room Air Oxygen Flow Rate 01/18/25 12:27 Temperature 98.0 F Pulse Rate 96 Pulse Rate [Pulse Oximeter] Respiratory Rate 18 Blood Pressure 127/60 Blood Pressure [Left Arm] Blood Pressure [Right Arm] Blood Pressure [orthostatic sitting Left Arm] Blood Pressure [orthostatic standing Left Arm] Pulse Oximetry 97 Oxygen Delivery Method Room Air Oxygen Flow Rate Assessment and Plan Assessment and plan (1) S/P total right hip arthroplasty: Problem details: POD 2, Dr. Heller, 01/16/2025, no complications Status: Acute (2) Upper GI bleed: Problem details: Erosive Esophagitis found on EGD Status: Acute (3) Anemia: Problem details: Hgb 7.6 (01/18/25). Will receive 1 unit of PRBC per hospitalist Status: Acute Plan - PT/OT consult for education and assistance. - Prescribed analgesics as needed - DVT prophylaxis: Only mechanical for 6 weeks due to recent diagnosis of upper GI esophageal bleed and erosion: This will include frequent walking, and SCDs. I talked to patient about her purchasing foot a home set of SCDs. - Anticipation is for discharge to home with family/friends possibly tomorrow, 01/19/2025 pending hemoglobin and response to PRBC, as she is getting a unit this afternoon.
--- NOTE | 2025-01-18 13:26 | PC.SOCIAL ---
Discharge planning: SW met with patient and partner and both state they have no questions or needs at this time.
--- NOTE | 2025-01-18 15:55 | P.IMPN_ITS ---
Assessment and Plan Assessment and plan (1) S/P total right hip arthroplasty: Problem comment: POD 2, Dr. Heller, 01/16/2025, no complications Status: Acute (2) Osteoarthritis of right hip: Status: Chronic (3) Upper GI bleed: Problem comment: Erosive Esophagitis found on EGD Status: Acute (4) Anemia: Problem comment: Hgb 7.6 (01/18/25). Will receive 1 unit of PRBC Status: Acute (5) Hypertension: Problem comment: Due to elevated blood pressures, restart losartan. Monitor blood pressure closely. If blood pressure starts to trend downward in the setting of GI bleeding, hold losartan Status: Acute Plan 1. Reviewed impression with patient and 2. Reviewed with her orthopedic surgeon 3. Off of aspirin, nonsteroidal inflammatory medications, and anticoagulants 4. Nonpharmacologic venous thromboembolism prophylaxis including increased activity and use of sequential compression device with Júnior stockings 5. Answered their questions are satisfaction 6. They are agreeable with above stated plans and recommendations Total Time Spent Total Time Spent: 50 minutes Subjective Date Seen: 01/18/25 Interval history: Hospital day 3, 01/18/2025: Status post right total hip arthroplasty, upper gastrointestinal hemorrhage, blood loss anemia Underwent esophagogastroduodenoscopy today which demonstrated grade D esophageal erosion consistent with misuse of nonsteroidal anti-inflammatory medication as analgesia prior to elective right total hip arthroplasty on 01/15/2025. Bleeding has abated. No longer on anticoagulant or anti thrombotic. Nonsteroidal anti- inflammatory medications have been stopped. Denies abdominal pain, nausea, vomiting. Denies dyspepsia, dysphagia, odynophagia. Denies constipation or diarrhea. Unaware of any additional blood loss. Exam Narrative: Exam Narrative: Examined patient her hospital room. Appears comfortable no acute distress. Alert and oriented x4. Lungs are clear to auscultation. Heart tones with regular rhythm. Abdomen with active bowel sounds, soft, nontender. No rebound or guarding. Extremities without edema. Ambulating with use of walker independently. No focal motor neurologic deficits. Const: Vital Signs, click to edit/add: Vital Signs - 24 hr 01/17/25 19:00 01/17/25 19:00 01/17/25 19:45 Temperature 100.4 F H 99.4 F Pulse Rate Pulse Rate [Pulse Oximeter] 105 H 105 H Respiratory Rate 14 Blood Pressure Blood Pressure [Le ft Arm] Blood Pressure [Ri ght Arm] 146/100 H Blood Pressure [or thostatic sitting Left Arm] Blood Pressure [or thostatic standing Left Arm] Pulse Oximetry 92 Oxygen Delivery Me thod Room Air Oxygen Flow Rate 01/17/25 23:00 01/17/25 23:00 01/17/25 23:00 Temperature 99.4 F Pulse Rate Pulse Rate [Pulse Oximeter] 102 H 102 H Respiratory Rate 14 14 Blood Pressure Blood Pressure [Le ft Arm] 168/72 H Blood Pressure [Ri ght Arm] Blood Pressure [or thostatic sitting Left Arm] Blood Pressure [or thostatic standing Left Arm] Pulse Oximetry 95 95 Oxygen Delivery Me thod Room Air Room Air Oxygen Flow Rate 01/17/25 23:00 01/18/25 03:24 01/18/25 03:25 Temperature 98.8 F Pulse Rate Pulse Rate [Pulse Oximeter] 102 H 102 H 102 H Respiratory Rate 14 18 Blood Pressure Blood Pressure [Le ft Arm] Blood Pressure [Ri ght Arm] 150/76 H Blood Pressure [or thostatic sitting Left Arm] Blood Pressure [or thostatic standing Left Arm] Pulse Oximetry 99 Oxygen Delivery Ks thod Room Air Oxygen Flow Rate 01/18/25 09:00 01/18/25 09:00 01/18/25 09:10 Temperature 98.6 F Pulse Rate Pulse Rate [Pulse Oximeter] 88 Respiratory Rate 16 Blood Pressure Blood Pressure [Le ft Arm] Blood Pressure [Ri ght Arm] 186/90 H 166/84 H Blood Pressure [or thostatic sitting Left Arm] Blood Pressure [or thostatic standing Left Arm] Pulse Oximetry 98 98 Oxygen Delivery Me thod Room Air Room Air Oxygen Flow Rate 01/18/25 11:00 01/18/25 11:00 01/18/25 12:27 Temperature 99.4 F 98.0 F Pulse Rate 96 Pulse Rate [Pulse Oximeter] 97 Respiratory Rate 18 18 Blood Pressure 127/60 Blood Pressure [Le ft Arm] 149/69 H Blood Pressure [Ri ght Arm] Blood Pressure [or thostatic sitting Left Arm] 149/69 H Blood Pressure [or thostatic standing Left Arm] 122/63 Pulse Oximetry 95 97 Oxygen Delivery Me thod Room Air Room Air Oxygen Flow Rate 01/18/25 12:46 01/18/25 13:16 01/18/25 13:46 Temperature 98.0 F 98.3 F 98.2 F Pulse Rate 93 94 93 Pulse Rate [Pulse Oximeter] Respiratory Rate 18 16 18 Blood Pressure 139/74 146/67 H 145/74 H Blood Pressure [Le ft Arm] Blood Pressure [Ri ght Arm] Blood Pressure [or thostatic sitting Left Arm] Blood Pressure [or thostatic standing Left Arm] Pulse Oximetry 97 95 97 Oxygen Delivery Me thod Oxygen Flow Rate 01/18/25 14:16 01/18/25 14:46 01/18/25 15:00 Temperature 98.1 F 98.0 F Pulse Rate 91 91 Pulse Rate [Pulse Oximeter] 97 Respiratory Rate 16 16 16 Blood Pressure 161/83 H 141/69 H Blood Pressure [Le ft Arm] Blood Pressure [Ri ght Arm] Blood Pressure [or thostatic sitting Left Arm] Blood Pressure [or thostatic standing Left Arm] Pulse Oximetry 96 97 Oxygen Delivery Me thod Oxygen Flow Rate 01/18/25 15:00 01/18/25 15:00 Temperature 98.0 F Pulse Rate Pulse Rate [Pulse Oximeter] 97 Respiratory Rate 16 Blood Pressure Blood Pressure [Le ft Arm] 149/69 H Blood Pressure [Ri ght Arm] Blood Pressure [or thostatic sitting Left Arm] Blood Pressure [or thostatic standing Left Arm] Pulse Oximetry 97 97 Oxygen Delivery Me thod Room Air Room Air Oxygen Flow Rate 0 Labs Labs: Laboratory Results - last 24 hr 01/16/25 01/17/25 01/17/25 09:19 21:41 21:53 WBC 13.40 H RBC 2.93 L Hgb 8.6 L Hct 26.1 L MCV 89 MCH 29 MCHC 33 RDW Coeff of Iva 11.8 Plt Count 208 Neut % (Auto) 80.5 H Lymph % (Auto) 10.3 L [place] % (Auto) 8.9 Eos % (Auto) 0.0 Baso % (Auto) 0.1 Neut # (Auto) 10.80 H Lymph # (Auto) 1.40 [place] # (Auto) 1.20 H Eos # (Auto) 0.00 Baso # (Auto) 0.00 Abs Immat Gran (auto) 0.00 Imm/Tot Granulo (auto) 0.2 Lactate 2.1 H Total Bilirubin 0.4 Direct Bilirubin 0.2 AST 78 H ALT 27 Alkaline Phosphatase 50 C-Reactive Protein 6.5 H Total Protein 5.7 L Albumin 3.4 Procalcitonin 0.16 Urine Color Yellow Urine Appearance Clear Urine pH 6.0 Ur Specific [place] 1.015 Urine Protein Negative Urine Glucose (UA) Negative Urine Ketones Negative Urine Blood Negative Urine Nitrite Negative Urine Bilirubin Negative Urine Urobilinogen 0.2 Ur Leukocyte Esterase Negative Blood Type B Positive Antibody Screen NEGATIVE Crossmatch ([facility]) See Detail 01/18/25 06:26 WBC 9.95 RBC 2.59 L Hgb 7.6 L* Hct 23.1 L MCV 89 MCH 29 MCHC 33 RDW Coeff of Iva 11.9 Plt Count 181 Neut % (Auto) 76.3 H Lymph % (Auto) 14.4 L [place] % (Auto) 8.5 Eos % (Auto) 0.4 Baso % (Auto) 0.2 Neut # (Auto) 7.60 H Lymph # (Auto) 1.40 [place] # (Auto) 0.80 Eos # (Auto) 0.04 Baso # (Auto) 0.02 Abs Immat Gran (auto) 0.02 Imm/Tot Granulo (auto) 0.2 Lactate Total Bilirubin Direct Bilirubin AST ALT Alkaline Phosphatase C-Reactive Protein Total Protein Albumin Procalcitonin Urine Color Urine Appearance Urine pH Ur Specific [place] Urine Protein Urine Glucose (UA) Urine Ketones Urine Blood Urine Nitrite Urine Bilirubin Urine Urobilinogen Ur Leukocyte Esterase Blood Type Antibody Screen Crossmatch ([facility])
[2025-01-18] MEDS: AMITRIPTYLINE HCL 10 MG TABLET PO (18:15)
[2025-01-18 18:19] LABS: Hemoglobin* 9.1 gm/dL (12.0-16.0)
--- NOTE | 2025-01-18 19:36 | PC.NURSE ---
Patient alert and awake during the shift. No reports of nausea, headache or dizziness. 1 unit of packed RBC administered to patient due to hemoglobin dropping. Patient tolerating foods/drinks well and vitally stable. Ambulating in the hallways 6x/day. PAtient had on LUDMILA stockings and calf SCDs when in bed. Requested to take both off after a couple of hours in them. Patient also informed to purchase SCD machine for home because she is unable to be anticoagulated. did buy machine that will be delivered on thursday. Plan to discharge home tomorrow.
[2025-01-19 02:26] VITALS: BP 130/80; PULSE 92; RESP 16; TEMP 36.9; O2SAT 92
[2025-01-19] MEDS: OXYCODONE 5 MG TABLET PO ×2 (04:21→11:38)
[2025-01-19] MEDS: ACETAMINOPHEN 500 MG TABLET 1000 MG PO ×2 (05:41→11:39)
[2025-01-19 05:51] VITALS: BP 127/72; BP 133/70; BP 134/64; PULSE 85; PULSE 89; PULSE 96
--- NOTE | 2025-01-19 05:57 | PC.NURSE ---
End of shift [id number]: A&O pleasant and cooperative. VSS. Reporting pain in hip 4-02/28. See eMAR for interventions. Up w/ sba fww and gb. Tolerates well. Dressing to hip c/d/i. +CMS. Pr refused ice to hip. SCDs and TEDS were also refused by the pt. Organisational Psychologist educated on importance of both devices. Ambulated in davis x1 during shift. Using call light appropriately.
[2025-01-19 06:32] LABS: Hematocrit 25.6 % (33.0-51.0); Hemoglobin* 8.4 gm/dL (12.0-16.0); Mean Corpuscular HGB Conc 33 gm/dL (32-36); Mean Corpuscular Hemoglobin 30 pg (26-34); Mean Corpuscular Volume 90 fL (80-100); Platelet Count* 180 K/uL (140-440); Red Blood Count 2.84 m/uL (4.00-5.20); White Blood Count* 8.94 K/uL (4.50-11.00)
[2025-01-19 06:37] LABS: Slide Review Reflex No
[2025-01-19 06:42] LABS: Albumin* 3.1 g/dL (3.3-5.0); Chloride* 103 mmol/L (96-114); Sodium* 136 mmol/L (135-149)
[2025-01-19 06:43] LABS: Potassium* 3.6 mmol/L (3.6-5.1)
[2025-01-19 06:45] LABS: Anion Gap 4 mEq/L (7-15); Blood Urea Nitrogen* 25 mg/dL (7-30); Carbon Dioxide* 29 mmol/L (20-32); Creatinine* 0.9 mg/dL (0.5-1.5); Estimated Glomerular Filt Rate 67 ml/min
[2025-01-19 06:46] LABS: Calcium* 8.1 mg/dL (8.4-10.6); Glucose* 97 mg/dL (60-115); Phosphorus* 2.6 mg/dL (2.5-4.5)
[2025-01-19 07:00] VITALS: O2SAT 95
[2025-01-19] MEDS: ESCITALOPRAM 10 MG TABLET 20 MG PO (08:33)
[2025-01-19] MEDS: SENNOSIDES 1 TAB TABLET 2 TAB PO (08:33)
[2025-01-19] MEDS: LOSARTAN POTASSIUM 50 MG TABLET 100 MG PO (08:33)
[2025-01-19] MEDS: OMEPRAZOLE 20 MG CAPSULE DR PO (08:34)
[2025-01-19 11:15] VITALS: BP 155/73; PULSE 82; RESP 16; TEMP 37.4; O2SAT 95
--- NOTE | 2025-01-19 13:51 | P.DS_ITS ---
DS: Providers Provider Date Seen: 01/19/25 Date of admission: 01/17/25 14:36 Primary care physician: Velia Singleotn DO Admitting Clinician: Jorge Heller MD Consults: 01/16/25 14:44 Consult to Occupational Therapy [CONS] Routine Comment: Reason(s) for OT Consult:: ADLs Prior to Discharge Any Restrictions?:: No Restrictions Comment: Consult to Physical Therapy [CONS] Routine Comment: Ambulate in the davis today Reason(s) for PT Consult:: Evaluate and Treat Any Restrictions?:: No Restrictions Comment: Nursing Activity Consult to Physician [CONS] Routine Comment: Consulting Provider: Hospitalists Has provider been notified: No Consult to Physical Therapist [CONS] Routine Comment: Reason for Consult:: Discharge Planning Needs Attending Physician on discharge: Jorge Heller MD Date of Discharge: 01/19/25 DS: Diagnosis Discharge Diagnosis (1) Osteoarthritis of right hip: Status: Chronic (2) S/P total right hip arthroplasty: Status: Acute Problem details: POD 2, Dr. Heller, 01/16/2025, no complications (3) Upper GI bleed: Status: Acute Problem details: Erosive Esophagitis found on EGD Repeat EGD in 4-6 months Proton pump inhibitor treatment for the next year Avoid nonsteroidal anti-inflammatory medications, antithrombotics such as aspirin, anticoagulant medications for next 3-6 months (4) Hypertension: Status: Acute Problem details: Due to elevated blood pressures, restart losartan. Monitor blood pressure cl osely. If blood pressure starts to trend downward in the setting of GI bleeding, hold losartan (5) Anemia: Status: Acute Problem details: Hgb 7.6 (01/18/25). Administered 1 unit of PRBC on 01/18/2025 with hemoglobin stabilizing at 8.4 subsequently. Discussed diet rich in iron. Initiated ferrous sulfate 325 mg once daily with vitamin-C 250 mg once daily for 3 months. Consider iron infusion when has follow-up with primary care physician. DS: Summary Hospital Course Hospital Course: History of present illness note from hospitalist consultation on date of admission, 01/16/2025: ?74 year old female admitted to the hospital for right total hip arthroplasty. Procedure performed today by Dr. Heller today. No complications. Dr. Heller requested consultation for medical management. Postoperatively she is doing well. She has no postoperative concerns. Pain is well controlled. She reports that preoperatively she was doing well. No significant concerns for perioperative care on her preop exam.? Patient subsequently developed coffee-ground emesis with nausea and lightheadedness. Did not have melena per se. Stabilized with IV fluids, proton pump inhibitors, discontinuation of antithrombotics and anticoagulants. 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 Hemoglobin dropped from 10.7 down to 7.6. Administered 1 unit packed red blood cells and hemoglobin stabilized at 8.4. After demonstrated hemodynamic stability patient is discharged as specified below. Status at Discharge Functional status at discharge: independent ambulation Overall status at discharge: patient is progressing back to baseline Time Spent with Patient Time attestation: Total time spent providing and/or coordinating discharge services: Time spent: Greater than 30 minutes Exam Narrative: Exam Narrative: Examined patient her hospital room. Appears comfortable no acute distress. Alert and oriented x4. Lungs are clear to auscultation. Heart tones with regular rhythm. Abdomen with active bowel sounds, soft, nontender. No rebound or guarding. Extremities without edema. Ambulating with use of walker independently. No focal motor neurologic deficits. Const: Vital Signs, click to edit/add: Vital Signs - 24 hr 01/18/25 14:16 01/18/25 14:46 01/18/25 15:00 Temperature 98.1 F 98.0 F Pulse Rate 91 91 Pulse Rate [Pulse Oximeter] 97 Pulse Rate [orthos tatic lying] Pulse Rate [orthos tatic sitting] Pulse Rate [orthos tatic standing] Respiratory Rate 16 16 16 Blood Pressure 161/83 H 141/69 H Blood Pressure [Le ft Arm] Blood Pressure [Ri ght Arm] Blood Pressure [or thostatic lying] Blood Pressure [or thostatic sitting Left Arm] Blood Pressure [or thostatic standing Left Arm] Pulse Oximetry 96 97 Oxygen Delivery Me thod Oxygen Flow Rate 01/18/25 15:00 01/18/25 15:00 01/18/25 15:59 Temperature 98.0 F 98.2 F Pulse Rate 97 Pulse Rate [Pulse Oximeter] 97 Pulse Rate [orthos tatic lying] Pulse Rate [orthos tatic sitting] Pulse Rate [orthos tatic standing] Respiratory Rate 16 18 Blood Pressure 130/79 Blood Pressure [Le ft Arm] 149/69 H Blood Pressure [Ri ght Arm] Blood Pressure [or thostatic lying] Blood Pressure [or thostatic sitting Left Arm] Blood Pressure [or thostatic standing Left Arm] Pulse Oximetry 97 97 95 Oxygen Delivery Me thod Room Air Room Air Oxygen Flow Rate 0 01/18/25 20:12 01/18/25 22:47 01/18/25 22:48 Temperature 98.7 F 98.2 F Pulse Rate Pulse Rate [Pulse Oximeter] 99 99 Pulse Rate [orthos tatic lying] Pulse Rate [orthos tatic sitting] Pulse Rate [orthos tatic standing] Respiratory Rate 16 16 16 Blood Pressure Blood Pressure [Le ft Arm] 127/53 L Blood Pressure [Ri ght Arm] 133/68 Blood Pressure [or thostatic lying] Blood Pressure [or thostatic sitting Left Arm] Blood Pressure [or thostatic standing Left Arm] Pulse Oximetry 91 91 90 Oxygen Delivery Me thod Room Air Room Air Room Air Oxygen Flow Rate 0 01/19/25 02:26 01/19/25 05:51 01/19/25 11:15 Temperature 98.5 F 99.4 F Pulse Rate Pulse Rate [Pulse Oximeter] 92 82 Pulse Rate [orthos tatic lying] 85 Pulse Rate [orthos tatic sitting] 89 Pulse Rate [orthos tatic standing] 96 Respiratory Rate 16 16 Blood Pressure Blood Pressure [Le ft Arm] Blood Pressure [Ri ght Arm] 130/80 155/73 H Blood Pressure [or thostatic lying] 134/64 Blood Pressure [or thostatic sitting Left Arm] 127/72 Blood Pressure [or thostatic standing Left Arm] 133/70 Pulse Oximetry 92 95 Oxygen Delivery Me thod Room Air Oxygen Flow Rate DS: Data Data Completed and Pending Labs on day of discharge: Labs from last 24 hours 01/19/25 01/18/25 01/16/25 06:15 18:12 09:19 WBC 8.94 RBC 2.84 L Hgb 8.4 L 9.1 L Hct 25.6 L MCV 90 MCH 30 MCHC 33 Plt Count 180 Sodium 136 Potassium 3.6 Chloride 103 Carbon Dioxide 29 Anion Gap 4 L BUN 25 Creatinine 0.9 Estimated Creat Clear 45.50 Estimated GFR 67 Glucose 97 Calcium 8.1 L Phosphorus 2.6 Albumin 3.1 L Crossmatch ([facility]) See Detail Discharge Plan Discharge Disposition: Home, Self-Care Date of Admission: 01/17/25 14:36 Attending Provider on Discharge: Shantanu Zimmerman Consulting Providers: Shantanu Zimmerman; Rogelio Woodward Primary Care Provider: Velia Singleton Condition: Improved Anticipated Discharge Date/Time: 01/19/25 12:30 Discharge Medications: New sennosides-docusate sodium [Senna-S] 8.6-50 mg tablet 1 - 4 tab-cap PO BID PRN (Reason: constipation) Qty: 60 0RF Rx Instructions: Hold medication if experiencing loose stools. oxycodone 5 mg tablet 2.5 - 5 mg PO Q4-6H MDD 6 PRN (Reason: pain) Qty: 42 0RF Rx Instructions: Take as needed for postop pain: 2.5mg mild pain, 5mg moderate-severe pain; wean as tolerated. acetaminophen 500 mg Tablet 1,000 mg PO Q6H 30 Days Qty: 240 0RF ferrous sulfate 325 mg (65 mg iron) tablet 325 mg PO DAILY Qty: 30 2RF Rx Instructions: Take with vitamin C 250 mg orally once daily, first thing in the morning ascorbic acid (vitamin C) [Vitamin C] 250 mg tablet 250 mg PO DAILY Qty: 30 2RF Rx Instructions: Take with Ferrous Sulfate 324 mg orally once daily, first thing in the morning Continued amitriptyline 10 mg tablet 10 mg PO QPM escitalopram oxalate 20 mg tablet 20 mg PO QAM losartan 100 mg tablet 100 mg PO DAILY Discharge Orders: Discharge Order (Routine); Ordered 01/19/25 Ordered By: Shantanu Zimmerman Consulting provider completed their portion of the discharge: Yes Patient Education: Iron Supplements (By mouth), Acetaminophen (By mouth), A scorbic Acid (By mouth), Oxycodone, Rapid Release (By mouth), Senna (By mouth), Anterior Hip Replacement (DC) Additional Instructions: 1. Follow-up with Dr. Velia Singleton in 5-10 days with pre-visit hemoglobin level- consider iron infusion 2. Do not use/take any non-steroidal anti-inflammatory medications (such as ibuprofen, naproxen, etc) for 3 months 3. Do not use/take aspirin or aspirin containing products for 3 months 4. Take new medication, omeprazole, for 1 year 5. Repeat esophagogastroduodenoscopy (EGD) in 4-6 months 6. Use LUDMILA stockings during the day and off at night for the next 1 month Activity Level: Activity as Tolerated and Weight Bearing as Tolerated Activity Detail: Wound: ? Do not remove original dressing; we will remove this at first postop visit in 1 week. Only remove dressing if integrity is in question. ? No immersing wound in water; showering okay; light scrub with your hand and body soap, rinse, dab dry ? Sutures are under the skin, will dissolve; allow surgical glue to come off naturally; do not scrub the wound or apply ointments/lotions ? Call our office with any redness that streaks, excessive drainage from the wound, or wound gapping. Ice/Elevate: ? Ice as needed for swelling and discomfort; elevate extremity frequently above the heart. Motion/Exercise: ? Weight bear as tolerated operative extremity (walker/cane for ambulation assistance as needed). Stationary bike. ? Per PT/OT. ? Straight leg raises daily: 1-2 sets of 10 reps. Ankle pumps. Pain Medications: ? Oral narcotic as prescribed. Wean as tolerated. Additional acetaminophen and ibuprofen as needed. Blood Clot Prevention (DVT): ? Medication: no medication treatment due to upper GI bleed. Mechanical DVT protection will include home SCDs (which you purchased and will use whenever sedentary or sleeping), knee high Ludmila socks (may take off 3 times per day for an hour each time), walking frequently, stationary biking at the [facility] daily, frequency ankle pumps, and consider having your massage your bilateral calves a few times per day. Driving: ? Do not drive while taking narcotic pain medication ? Anticipate 4-6 weeks no driving if operative leg is driving leg Dental: ? No elective dental work for 3 months post-op. If there is an urgent/emergent dental need, contact our office for an antibiotic prescription. Smoking/Alcohol: ? Do not smoke; do no drink alcohol especially when taking postoperative oral narcotic medication Seek Care from you Primary Care Provider if you experience the following issues in the postoperative phase and beyond: ? Bacterial infections such as: pneumonia, bacterial skin infection (cellulitis), UTI, high fever, chills unrelated to the operative body part - call your primary care physician urgently for treatment in hopes to protect your health and the metal implant. Referrals: ? PT, OT per patient preference - evaluate & treat total hip arthroplasty protocol, anterior approach (gait training, ROM, ADLs) Vaccines: ? No vaccines until 4-6 weeks postop Follow up: ? [facility] visit in 1 week. ? Ortho surgeon follow-up in 6 weeks; repeat radiographs AP pelvis, cross table lateral operative hip If there are any acute concerns regarding your surgery, please call our orthopedic clinic ([phone]) Discharge Diet: Regular Follow Up Appointments: Velia Singleton DO [Primary Care Provider] - 01/25/25 11:00 am ([facility] for follow-up.) Miller Thapa PA-C [Physician Pharmaceutical Botanist] - 01/24/25 1:20 pm ([facility] for follow-up.) Forms: [facility] Info Instructions
--- NOTE | 2025-01-19 15:38 | PC.NURSE ---
End of Shift: Patient pleasant and cooperative, A&O. VSS, afebrile. SpO2 maintained above 90% on RA. Patient reports pain this shift managed with PRN medication, see MAR. IV removed with tip intact. Discharge instructions provided, all questions answered. D/C to home with via wheelchair.
== END 2025-01-19 12:16 | disposition home or self-care (01) | DRG 469 ==
LOC: OR 14:37 → MEDSURG 14:37
PROVIDERS: Family Medicine; Internal Medicine; Admitting Provider Orthopaedic Surgery Sports Medicine; PCP Family Medicine; Visit Provider Orthopaedic Surgery Sports Medicine
PROC: 0SR904A Replacement of Right Hip Joint with Ceramic on Polyethylene Synthetic Substitute, Uncemented, Open Approach (ICD-10-PCS; CPT 27130; principal; 2025-01-16 10:45)
DX: M16.11 Unilateral primary osteoarthritis, right hip (principal); K22.11 Ulcer of esophagus with bleeding; K92.0 Hematemesis; D62 Acute posthemorrhagic anemia; T39.395A Adverse effect of other nonsteroidal anti-inflammatory drugs [NSAID], initial encounter; G89.18 Other acute postprocedural pain; Z79.82 Long term (current) use of aspirin; Z79.899 Other long term (current) drug therapy; Z79.01 Long term (current) use of anticoagulants; R00.0 Tachycardia, unspecified; I10 Essential (primary) hypertension; F32.9 Major depressive disorder, single episode, unspecified
CPT/HCPCS: 00731; 01214; 36415; 36430; 43235; 64450; 73501; 76000; 76942; 80069; 80076; 81003; 82565; 83605; 83986; 84132; 84145; 84295; 84484; 84520; 85018; 85025; 85027; 86140; 86850; 86900; 86901; 86922; 87040; 87338; 87631; 93005; 97110; 97116; 97161; 97165; 97530; 97535; 99100; 99140; A9270; C1776; J0690; J1100; J1171; J1885; J2250; J2371; J2405; J2470; J2704; J2795; J3010; J3490; J7030; J7120; P9016

== ENCOUNTER 2025-02-21 11:15 | Outpatient (RCR) | payer MEDICARE, BC, SELFPAY ==
--- NOTE | 2025-01-24 10:51 | PT.OPEX ---
PT [facility] Outpatient Eval PT [facility] Outpatient Eval Start: 01/24/25 07:40 Freq: Status: Active Protocol: Document 01/24/25 09:08 HLA (Rec: 01/24/25 10:47 HLA [id number]) E-signed By Estela Bryson, PT, DPT Physical Therapy Outpatient Evaluation Insurance Information Recert Due Date 04/23/25 Insurance Name [employer] Medical Diagnosis R ant MATTHEW, recent GI bleed, anemia with 1 unit at hospital Treating Diagnosis weakness, impaired ROM, difficulty amb Referring MD Arron Subjective Preferred Name Lilliana Subjective Pt reports pain increased yesterday, she hadn't been icing and started that. Taking Tylenol and oxycodone 1-2x/ day. Sees ortho today. Doing her exercises 3x/day, walking no device every 1-2 hours around her home. Pain Comments Pain R thigh, achy and swollen Date of Last Physician Visit 01/19/25 Date of Next Physician Visit 01/24/25 Date of Surgery (If applicable) 01/16/25 Current Work Status Retired Precautions Weight Bearing Status Weight Bear as Tolerated Therapy Limitations/Systems Review Not Limited Objective Range of Motion UES B WNL L LE WNL R hip flex 0-95, abd 0-20, ER 0-35, IR 0-30 knee/ankle full Strength B UEs 5/5 L LE 5/5 R hip 3+/5, knee 4-/5, ankle 5 /5 Swelling R surgical incision intact, edema surrounding Palpation R anterior thigh tender Balance & Gait Walking some R hip elevation, stiffness noted but stable and good heel toe patterning Balance 5 time sit<>stand 18 sec Sensation/Reflexes intact to light touch Functional Test Performed & Score LEFS 32/80 Assessment Assessment/Impression Lilliana is a 74 year old female who underwent L ant MATTHEW at [facility] 01/16/25 with post-op complication of anemia due to GI bleed. She returned home with spouse's support on 01/19/25. She is wearing knee high TEDS during the day. Pt sees ortho PA today, bandage to be removed. She indicates things are going well in her 1 level, 1 step entry home. She is using not using her walker . Pt today presents with flex R hip 0-95, abd 0-20, ER 0-35, IR 0-30. Strength 3+/5 R hip. She amb without AD, stiffness R hip/slight hiking, decreased arm swing. Good michele, stable. Pt with weakness, impaired ROM, impaired amb and balance post R ant MATTHEW. She will benefit from weekly PT to advance gt, transfers, return to ind ADLs, community distance amb. Good rehab potential. Primary Functional Limitations impaired ROM, impaired strength, difficulty with transfers, amb, pain Plan of Care Rehabilitation Potential Good Physical Therapy Goals Within 8-10 weeks. 1. Pt will amb level surfaces 20 min without an assistive device and no evidence of limp . 2. Pt will ascend/descend 13 stairs with railing reciprocally, safely and independently for household and community mobility. 3. Pt will demonstrate normal strength of surgical hip to prevent substitution of movement, prevent falls with mobility. 4. Pt will be independent in home ex program to promote strength and mobility and to prevent falls. Treatment Plan/Direct Interventions Gait Training,Ice/Cold/ Vasopneumatic,Joint Mobilization,Manual Therapy, Neuromuscular Re-ed,Self-Care/ Home Management,Therapeutic Activities,Therapeutic Exercises Frequency/Duration 1x/week x 6-8 weeks Patient Will Be Discharged From Therapy Completion of LTG(s),Skills Plateau,Independent w/HEP, Independently Progressing Evaluation Billing Untimed Code Treatment Minutes 15 PT Eval No Charge No Complexity Low Certification Information Initial Certification Date 01/24/25 Ending Certification Date 04/23/25 Provider Signature Required Yes Provider Signature Shows Agreement With POC & Medical Necessity Physician NPI Number Write NPI# Here Physician Comment/Change : Physician Signature & Date Requested Please Sign/Date Here
== END 2025-02-21 17:14 | disposition home or self-care (01) ==
PROVIDERS: PCP Family Medicine; Visit Provider Orthopaedic Surgery Sports Medicine
DX: Z47.1 Aftercare following joint replacement surgery (principal); Z96.641 Presence of right artificial hip joint; Z51.89 Encounter for other specified aftercare
CPT/HCPCS: 97110; 97112; 97116; 97161